=== PATIENT | male | born 1945 | race Caucasian/White ===

== ENCOUNTER → 2017-03-10 | Outpatient (CLI) | payer MEDICARE ==
[~2017-03-10] MED LIST: AMLODIPINE BES10 MG PO; ASPIRIN 81MG TA81 MG PO; GLIMEPIRIDE 4MG4 MG PO; LOSARTAN POTAS100 MG PO; METFORMIN 500M500 M1 PO; OMEPRAZOLE20 MG PO; SIMVASTATIN40 MG PO
--- NOTE | 2017-03-10 13:41 | RADIOLOGY REPORT PS360 ---
[id number] VIEWS HISTORY: Left shoulder pain IMPINGEMENT SYNDROME ORDERING PHYSICIAN: Minerva Nugent APRN PATIENT AGE: 71 years COMPARISON: None FINDINGS: No fracture or dislocation. No lytic or blastic change. There is normal mineralization. There are osteoarthritic changes at the acromioclavicular joint with mild spurring of the infra aspect of the distal clavicle. No significant subacromial stenosis. Mild osteoarthritic changes involve the glenohumeral joint. Minimal calcification noted along the inferior aspect of the acromium. 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
== END ==
LOC: RAD 13:13
DX: M75.42 Impingement syndrome of left shoulder (principal)

== ENCOUNTER → 2017-05-11 | Outpatient (CLI) | payer MEDICARE ==
--- NOTE | 2017-05-12 07:11 | RADIOLOGY REPORT PS360 ---
MRI-T-SPINE W/O HISTORY: Thoracic neuralgia, truncal tingling, stiffness and back THORACIC NEURALGIA ORDERING PHYSICIAN: Wes Lockwood MD PATIENT AGE: 72 years COMPARISON: Radiograph of 04/19/2017 TECHNIQUE: Standard multiplanar multiecho sequences are performed without contrast. 3-D MIP and myelographic images are also rendered and reviewed FINDINGS: There is normal alignment. The spinal cord has an unremarkable appearance. There is degenerative disc disease at T6-T7 and T7 T1 which is visible on the edge of the field on the sagittal images. There is mild bilateral foraminal narrowing at T7 T1. The disc space at C6-C7 is not imaged in the axial plane. No fracture or dislocation. No disc herniation. No paraspinal mass. There is mild change disc disease at T11-T12 and T12-L1. IMPRESSION: 1. No acute finding. 2. Degenerative disc disease at C6-C7, C7-T1, T11-T12, and T12-L1. 3. No disc herniation or acute fracture
== END ==
LOC: RAD 07:49
DX: M79.2 Neuralgia and neuritis, unspecified (principal); M54.6 Pain in thoracic spine